=== PATIENT | male | born 1960 | race Caucasian/White ===

== ENCOUNTER 2023-10-25 07:18 | Emergency (ER) | payer MEDICARE ==
[~2023-10-25] VITALS: Ht 180.3 cm; Wt 83.1 kg
--- NOTE | ~2023-10-25 | EKG ---
[facility] [address] [place], [place] [address] Draft EKG completed, results pending confirmation PATIENT NAME: FRANCISCO SPARKS IFRAH Electrocardiogram DATE OF : 56 PHYSICIAN: PRELIMINARY REPORT #: [id number] REPORT IS CONFIDENTIAL AND NOT TO BE RELEASED WITHOUT AUTHORIZATION
[2023-10-25 08:22] LABS: BASOPHILS 0.7 % (0-2); EOSINOPHILS 1.8 % (0-6); HEMATOCRIT 35.8 % (35.0-50.0); HEMOGLOBIN 12.5 g/dL (12.0-18.0); LYMPHOCYTES 25.6 % (24-44); MCH 31.7 (27-36); MCHC 34.9 g/dl (30-36); MCV 90.8 fl (81-99); MONOCYTES 7.2 % (0-12); NEUTROPHILS 64.7 % (39-80); PLATELET COUNT 212 K/uL (140-440); RBC 3.94 M/ul (4.3-5.7); RDW 13.5 (10.5-15.0)
[2023-10-25 08:46] LABS: ALBUMIN 3.4 g/dL (3.4-5.0); ALBUMIN/GLOBULIN RATIO 1.03 (1.1-2.4); ANION GAP 10.8 (7-21); BILIRUBIN, TOTAL 0.6 ng/dL (0.2-1.0); BUN/CREATININE RATIO 20.72 (6.0-28.6); CALCIUM 8.8 mg/dL (8.5-10.1); CHOLESTEROL/HDL RATIO 3.5; CREATININE, SERUM 1.11 mg/dL (0.70-1.30); POTASSIUM 3.8 mmol/L (3.5-5.1); PROTEIN, TOTAL 6.7 g/dL (6.4-8.2)
[2023-10-25] MEDS ORDERED: LISINOPRIL10 MG PO (08:56)
[2023-10-25 09:04] VITALS: BP 163/88
== END 2023-10-25 09:06 | disposition home or self-care (01) ==
LOC: ED 07:18
PROVIDERS: Emergency Medicine
DX: I10 Essential (primary) hypertension (principal)
CPT/HCPCS: 36415; 80053; 80061; 84484; 85025; 93005; 93010; 99283-25